=== PATIENT | male | born 1940 | race Caucasian/White ===

== ENCOUNTER 2019-01-07 22:51 | Emergency (ER) | payer MEDICARE ==
[~2019-01-07] VITALS: Ht 165.1 cm; Wt 54.5 kg
[2019-01-08] MEDS ORDERED: LIDOCAINE 1% 10 ML VIAL ONE (00:41)
[2019-01-08] MEDS ORDERED: POVIDONE-IODINE 10% 15 ML SOLUTION UD TP ONE (00:45)
[2019-01-08] MEDS ORDERED: LIDOCAINE 1% 10 ML VIAL INJ ONE (00:45)
[2019-01-08] MEDS ORDERED: KETOROLAC TROMETHAMINE 30 MG/ML VIAL IM ONE (01:30)
[2019-01-08 02:03] LABS: APPEARANCE,URINE CLEAR (CLEAR); BILIRUBIN,URINE NEGATIVE (NEGATIVE); GLUCOSE, URINE (UA) NEGATIVE (NEGATIVE); KETONES,URINE NEGATIVE (NEGATIVE); LEUKOCYTE ESTERASE ,URINE NEGATIVE (NEGATIVE); NITRATE,URINE NEGATIVE (NEGATIVE); OCCULT BLOOD,URINE SMALL (NEGATIVE); PH,URINE 6.5 (5.0-8.0); PROTEIN,URINE NEGATIVE (NEGATIVE); UROBILINOGEN,URINE 0.2 mg/dL (<=1.0)
[2019-01-08 02:09] LABS: BACTERIA,URINE None Seen /HPF (None Seen); SQUAMOUS EPITHELIAL CELL,UR Rare /LPF (None Seen); WBC,URINE 0-2 /HPF (0-5)
[2019-01-08 02:40] VITALS: BP 146/81
[2019-01-08] MEDS ORDERED: CEPHALEXIN MONOHYDRATE 500 MG CAPSULE PO ONE (03:00)
== END 2019-01-08 03:08 | disposition home or self-care (01) ==
LOC: EMS 22:53
DX: S01.81XA Laceration without foreign body of other part of head, initial encounter (principal); S70.02XA Contusion of left hip, initial encounter; S40.212A Abrasion of left shoulder, initial encounter; S90.512A Abrasion, left ankle, initial encounter; M25.571 Pain in right ankle and joints of right foot; V03.90XA Pedestrian on foot injured in collision with car, pick-up truck or van, unspecified whether traffic or nontraffic accident, initial encounter; Y93.01 Activity, walking, marching and hiking; Y92.89 Other specified places as the place of occurrence of the external cause; Y99.8 Other external cause status
CPT/HCPCS: 70450; 73502; 73503; 73610 ×2; 81001; 96372; 97597; 99285; J1885; J3490